=== PATIENT | female | born 1950 | race Caucasian/White ===

== ENCOUNTER → 2021-10-08 | Outpatient (REF) | LOC: M LABSMTC 09:53 | PROVIDERS: ATTEND Pediatrics | DX: Z11.52 Encounter for screening for COVID-19 (principal); Z20.822 Contact with and (suspected) exposure to COVID-19 ==

== ENCOUNTER → 2023-03-16 | Outpatient (REF) | payer MEDICARE, MEDICAID, OTHER ==
[2023-03-16 16:48] LABS: HEMATOCRIT 43.8 % (36.0-47.0); HEMOGLOBIN 14.5 g/dl (12.0-15.5); MEAN CORPUSCULAR HEMOGLOBIN 33.3 pg (27.0-33.0); MEAN CORPUSCULAR HGB CONC 33.1 g/dl (32.0-36.5); MEAN CORPUSCULAR VOLUME 100.7 fl (80.0-96.0); PLATELET COUNT, AUTOMATED 286 10^3/uL (150-450); RED BLOOD COUNT 4.35 10^6/uL (4.00-5.40)
[2023-03-16 17:15] LABS: FREE T4 0.82 NG/DL (0.89-1.76); THYROID STIMULATING HORMONE 1.401 uIU/ML (0.55-4.78)
[2023-03-16 17:18] LABS: ALBUMIN 3.9 G/DL (3.2-5.2); ALKALINE PHOSPHATASE 98 U/L (46-116); ALT/SGPT 22 U/L (7.0-40); AST/SGOT 19 U/L (<34); BILIRUBIN,TOTAL 0.9 MG/DL (0.3-1.2); BLOOD UREA NITROGEN 22 MG/DL (9-23); CARBON DIOXIDE LEVEL 30 MMOL/L (20-31); CHLORIDE LEVEL 105 MMOL/L (98-107); CHOLESTEROL LEVEL 210 MG/DL (<200); CHOLESTEROL RISK RATIO 3.12 (<5); CREATININE FOR GFR 0.86 MG/DL (0.55-1.30); GLOMERULAR FILTRATION RATE > 60.0 (>39); GLUCOSE, FASTING 92 MG/DL (74-106); HDL CHOLESTEROL 67.1 MG/DL (>40); LDL CHOLESTEROL 90.5 MG/DL (<100); NON-HDL-C 142.9 MG/DL; POTASSIUM SERUM 4.6 MMOL/L (3.5-5.1); SODIUM LEVEL 142 MMOL/L (136-145); TOTAL PROTEIN 6.7 G/DL (5.7-8.2); TRIGLYCERIDES LEVEL 262 MG/DL (<150)
[2023-03-16 17:19] LABS: TOTAL 25(OH) VITAMIN D 8.9 NG/ML (20.0-100.0)
[2023-03-16 18:11] LABS: HEMOGLOBIN A1c 5.4 % (4.0-6.0)
== END ==
LOC: M SFHCADAM 11:35
PROVIDERS: ATTEND Family Medicine
DX: L40.0 Psoriasis vulgaris (principal); E78.2 Mixed hyperlipidemia; Z13.1 Encounter for screening for diabetes mellitus; E55.9 Vitamin D deficiency, unspecified

== ENCOUNTER 2024-06-25 11:24 | Observation (INO) | payer OTHER, MEDICAID ==
[~2024-06-25] VITALS: Ht 170.2 cm; Wt 73.4 kg
[2024-06-25 12:22] LABS: BASO % 0.2 % (0.0-1.0); EOS % 0.2 % (0.0-3.0); HEMATOCRIT 45.3 % (36.0-47.0); HEMOGLOBIN 15.4 g/dl (12.0-15.5); LYMPH # 1.5 10^3/uL (1.5-5.0); LYMPH % 14.9 % (24.0-44.0); MEAN CORPUSCULAR HEMOGLOBIN 33.6 pg (27.0-33.0); MEAN CORPUSCULAR VOLUME 98.7 fl (80.0-96.0); MONO # 0.6 10^3/uL (0.0-0.8); MONO % 6.4 % (2.0-8.0); NEUTROPHILS # 7.7 10^3/uL (1.5-8.5); PLATELET COUNT, AUTOMATED 290 10^3/uL (150-450); RED BLOOD COUNT 4.59 10^6/uL (4.00-5.40); WHITE BLOOD COUNT 9.9 10^3/uL (4.0-10.0)
[2024-06-25] MEDS ORDERED: ACET-683 PO (12:24)
[2024-06-25 12:55] LABS: ETHYL ALCOHOL (ETHANOL) 0.004 % (0.000-0.010)
[2024-06-25 12:56] LABS: CPK CREATINE PHOSPHOKINASE 52 U/L (34-145)
[2024-06-25 12:57] LABS: ALBUMIN 3.9 G/DL (3.2-5.2); ALKALINE PHOSPHATASE 101 U/L (46-116); ALT/SGPT 16 U/L (7.0-40); AST/SGOT 10 U/L (<34); BILIRUBIN,DIRECT 0.4 MG/DL (<0.4); BILIRUBIN,TOTAL 1.6 MG/DL (0.3-1.2); BLOOD UREA NITROGEN 14 MG/DL (9-23); CALCIUM LEVEL 10.1 MG/DL (8.3-10.6); CARBON DIOXIDE LEVEL 24 MMOL/L (20-31); CHLORIDE LEVEL 109 MMOL/L (98-107); CK-MB VALUE MASS < 1.0 NG/ML (<3.6); CREATININE FOR GFR 0.85 MG/DL (0.55-1.30); GLOMERULAR FILTRATION RATE > 60.0 (>39); GLUCOSE, FASTING 114 MG/DL (74-106); MB/CK RELATIVE INDEX 1.92 (< OR =4); POTASSIUM SERUM 4.2 MMOL/L (3.5-5.1); SALICYLATE LEVEL < 3.0 MG/DL (<30); SODIUM LEVEL 142 MMOL/L (136-145); TOTAL PROTEIN 7.6 G/DL (5.7-8.2)
[2024-06-25 13:01] LABS: OSMOLALITY SERUM 303 MOSM/KG (280-301)
[2024-06-25 13:02] LABS: THYROID STIMULATING HORMONE 1.137 uIU/ML (0.55-4.78)
[2024-06-25] MEDS: ACETAMINOPHEN TAB 650MG DOSE (2X325MG) PO ONE (16:46)
[2024-06-25] MEDS: hydrALAZINE 20MG/ML 1ML VIAL IV ONE (16:46)
[2024-06-25] MEDS: ACETAMINOPHEN *IV* 1,000 MG in IV 1 EA IV ONE (22:10)
[2024-06-25] MEDS ORDERED: KETOROLAC 30 MG/ML 1ML VIAL IV PRN (22:15)
[2024-06-25] MEDS ORDERED: MOM 30ML SUSPENSION UDC PO PRN (22:15)
[2024-06-25] MEDS ORDERED: HOME MED LIST COMPLETE! XX SCH (22:30)
[2024-06-25 22:36] LABS: CHOLESTEROL LEVEL 270 MG/DL (<200); CHOLESTEROL RISK RATIO 4.15 (<5); LDL CHOLESTEROL 157.2 MG/DL (<100); TRIGLYCERIDES LEVEL 239 MG/DL (<150)
[2024-06-25 22:46] LABS: HEMOGLOBIN A1c 5.2 % (4.0-6.0)
[2024-06-26] MEDS: CAPTOpril 12.5 MG TAB PO SCH (00:51)
[2024-06-26 02:11] VITALS: BP 152/91; TEMP 97.4; O2SAT 95
[2024-06-26 03:07] VITALS: BP 149/87
[2024-06-26 06:30] LABS: HEMATOCRIT 44.1 % (36.0-47.0); HEMOGLOBIN 14.8 g/dl (12.0-15.5); MEAN CORPUSCULAR HEMOGLOBIN 32.8 pg (27.0-33.0); MEAN CORPUSCULAR HGB CONC 33.6 g/dl (32.0-36.5); MEAN CORPUSCULAR VOLUME 97.8 fl (80.0-96.0); PLATELET COUNT, AUTOMATED 288 10^3/uL (150-450); RED BLOOD COUNT 4.51 10^6/uL (4.00-5.40); WHITE BLOOD COUNT 10.1 10^3/uL (4.0-10.0)
[2024-06-26] MEDS ORDERED: ACETAMINOPHEN TAB 650MG DOSE (2X325MG) PO PRN (06:30)
[2024-06-26 07:19] LABS: BLOOD UREA NITROGEN 13 MG/DL (9-23); CALCIUM LEVEL 9.8 MG/DL (8.3-10.6); CARBON DIOXIDE LEVEL 24 MMOL/L (20-31); CHLORIDE LEVEL 107 MMOL/L (98-107); CREATININE FOR GFR 0.71 MG/DL (0.55-1.30); GLOMERULAR FILTRATION RATE > 60.0 (>39); GLUCOSE, FASTING 104 MG/DL (74-106); POTASSIUM SERUM 4.3 MMOL/L (3.5-5.1); SODIUM LEVEL 140 MMOL/L (136-145)
[2024-06-26 07:50] VITALS: BP 131/80; TEMP 97.5; O2SAT 94
[2024-06-26] MEDS ORDERED: ENOXAPARIN 40MG/0.4ML SYRINGE (J1650 PER 10MG) SC SCH (09:00)
[2024-06-26] MEDS: ASPIRIN 81MG CHEW TABLET PEG SCH (09:56)
[2024-06-26] MEDS: APIXABAN 5 MG TAB (ELIQUIS) PO SCH (09:56)
[2024-06-26] MEDS: DOCUSATE SODIUM 100MG CAPSULE PO SCH (09:56)
[2024-06-26] MEDS: ATORVASTATIN 20 MG TAB PO SCH (09:56)
[2024-06-26 15:45] VITALS: BP 139/82; TEMP 98.2; O2SAT 95
[2024-06-26 20:00] VITALS: BP 121/66; TEMP 98.1; O2SAT 94
[2024-06-26 21:07] VITALS: BP 118/64; TEMP 97.3; O2SAT 94
[2024-06-27 03:56] VITALS: BP 144/55; TEMP 97.6; O2SAT 95
[2024-06-27 05:18] VITALS: BP 144/70
[2024-06-27 05:20] VITALS: BP 144/70
[2024-06-27 07:25] VITALS: BP 129/66; TEMP 97.6; O2SAT 98
[2024-06-27] MEDS: ONDANSETRON 4MG ORAL DISINTEGRATING TAB PO PRN (07:48)
[2024-06-27] MEDS: KETOROLAC 30 MG/ML 1ML VIAL IV PRN (07:49)
[2024-06-27] MEDS ORDERED: TOPA1TAB PO (11:46)
[2024-06-27] MEDS ORDERED: ACET-897 PO (11:46)
[2024-06-27] MEDS ORDERED: ASPI81CH8 PO (11:46)
[2024-06-27] MEDS ORDERED: AMLO25TA PO (11:46)
[2024-06-27] MEDS ORDERED: CLOP75TA99 PO (11:46)
[2024-06-27] MEDS ORDERED: ATOR1TAB21 PO (11:46)
[2024-06-27] MEDS ORDERED: CEFD1CAP9 PO (23:08)
== END 2024-06-27 15:22 | disposition home health service (06) ==
LOC: M ED 11:24 → M ED INP 11:25 → M PCU 06-26 02:02
PROVIDERS: ADMIT Student in an Organized Health Care Education/Training Program; ATTEND Student in an Organized Health Care Education/Training Program
DX: S06.0X0A Concussion without loss of consciousness, initial encounter (principal); W18.09XA Striking against other object with subsequent fall, initial encounter; Y92.092 Bedroom in other non-institutional residence as the place of occurrence of the external cause; Y93.89 Activity, other specified; Y99.8 Other external cause status; R55 Syncope and collapse; R26.81 Unsteadiness on feet; G47.62 Sleep related leg cramps; I16.0 Hypertensive urgency; Z86.73 Personal history of transient ischemic attack (TIA), and cerebral infarction without residual deficits; R11.0 Nausea; I65.21 Occlusion and stenosis of right carotid artery; N30.90 Cystitis, unspecified without hematuria; B96.20 Unspecified Escherichia coli [E. coli] as the cause of diseases classified elsewhere; E78.5 Hyperlipidemia, unspecified; I63.313 Cerebral infarction due to thrombosis of bilateral middle cerebral arteries; M25.422 Effusion, left elbow; M85.822 Other specified disorders of bone density and structure, left upper arm; M19.022 Primary osteoarthritis, left elbow; I67.82 Cerebral ischemia; Z79.899 Other long term (current) drug therapy; Z79.82 Long term (current) use of aspirin
CPT/HCPCS: 36415; 70450; 70544; 70551; 71045; 72125; 73080; 73200; 80048; 80061; 80076; 80143; 81001; 82077; 82140; 82550; 82553; 83036; 83605; 83930; 84443; 84484; 85025; 85027; 87040; 87088; 87186; 93005; 93041; 93306; 94760; 96374; 96375; 97116; 97161; 97165; 97530; 99285; G0378; J0131; J0360; J1885

== ENCOUNTER → 2024-07-04 | Outpatient (REF) | payer OTHER, MEDICAID ==
[~2024-07-04] MED LIST: ACET-683 PO; ACET-897 PO; AMLO25TA PO; ASPI81CH8 PO; ATOR1TAB21 PO; CEFD1CAP9 PO; CLOP75TA99 PO; TOPA1TAB PO
[2024-07-04 19:38] LABS: BLOOD UREA NITROGEN 14 MG/DL (9-23); CARBON DIOXIDE LEVEL 26 MMOL/L (20-31); CHLORIDE LEVEL 109 MMOL/L (98-107); CREATININE FOR GFR 0.91 MG/DL (0.55-1.30); GLOMERULAR FILTRATION RATE > 60.0 (>39); GLUCOSE, FASTING 97 MG/DL (74-106); MAGNESIUM LEVEL 2.3 MG/DL (1.8-2.4); POTASSIUM SERUM 4.1 MMOL/L (3.5-5.1); SODIUM LEVEL 141 MMOL/L (136-145)
[2024-07-04 19:41] LABS: FOLATE 13.4 NG/ML (>5.4)
[2024-07-04 19:43] LABS: VITAMIN B12 LEVEL 350 PG/ML (211-911)
== END ==
LOC: M SFHCADAM 11:51
PROVIDERS: ATTEND Physician Assistant
DX: G47.62 Sleep related leg cramps (principal)

== ENCOUNTER → 2024-09-05 | Outpatient (REF) | payer OTHER, MEDICAID ==
[2024-09-05 18:27] LABS: HEMATOCRIT 41.2 % (36.0-47.0); HEMOGLOBIN 13.5 g/dl (12.0-15.5); MEAN CORPUSCULAR HEMOGLOBIN 32.5 pg (27.0-33.0); MEAN CORPUSCULAR HGB CONC 32.8 g/dl (32.0-36.5); PLATELET COUNT, AUTOMATED 302 10^3/uL (150-450); RED BLOOD COUNT 4.16 10^6/uL (4.00-5.40); WHITE BLOOD COUNT 9.3 10^3/uL (4.0-10.0)
[2024-09-05 18:35] LABS: HEMOGLOBIN A1c 5.6 % (4.0-6.0)
[2024-09-05 18:51] LABS: ALBUMIN 4.1 G/DL (3.2-5.2); ALKALINE PHOSPHATASE 106 U/L (35-104); ALT/SGPT 25 U/L (7.0-40); AST/SGOT 16 U/L (<34); BILIRUBIN,TOTAL 1.7 MG/DL (0.3-1.2); BLOOD UREA NITROGEN 19 MG/DL (9-23); CARBON DIOXIDE LEVEL 27 MMOL/L (20-31); CHLORIDE LEVEL 104 MMOL/L (98-107); CHOLESTEROL LEVEL 161 MG/DL (<200); CHOLESTEROL RISK RATIO 3.41 (<5); CREATININE FOR GFR 0.84 MG/DL (0.55-1.30); GLOMERULAR FILTRATION RATE > 60.0 (>39); GLUCOSE, FASTING 98 MG/DL (74-106); HDL CHOLESTEROL 47.2 MG/DL (>40); LDL CHOLESTEROL 82.2 MG/DL (<100); NON-HDL-C 113.8 MG/DL; POTASSIUM SERUM 4.5 MMOL/L (3.5-5.1); SODIUM LEVEL 140 MMOL/L (136-145); TOTAL PROTEIN 7.5 G/DL (5.7-8.2); TRIGLYCERIDES LEVEL 158 MG/DL (<150)
[2024-09-05 18:54] LABS: THYROID STIMULATING HORMONE 1.481 uIU/ML (0.55-4.78)
[2024-09-05 18:56] LABS: FREE T4 1.02 NG/DL (0.89-1.76)
== END ==
LOC: M SFHCADAM 14:51
PROVIDERS: ATTEND Family Medicine
DX: I65.21 Occlusion and stenosis of right carotid artery (principal); I66.01 Occlusion and stenosis of right middle cerebral artery; I10 Essential (primary) hypertension; E78.2 Mixed hyperlipidemia; Z13.1 Encounter for screening for diabetes mellitus